=== PATIENT | male | born 2000 | race Caucasian/White ===

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

== ENCOUNTER 2024-12-13 05:51 | Emergency (ER) | payer OTHER ==
[~2024-12-13] VITALS: Ht 175.3 cm; Wt 90.0 kg
[2024-12-13 06:09] VITALS: O2SAT 100
[2024-12-13] MEDS: ONDANSETRON HCL 4MG/2ML INJ IV ONE ×2 (06:44→08:01)
[2024-12-13] MEDS: SODIUM CHLORIDE 0.9% 1,000 ML IV ONE (06:44)
[2024-12-13] MEDS: KETOROLAC 15MG/ML VIAL IV ONE (06:44)
[2024-12-13 06:45] LABS: BASOPHILS % 0.3 % (0.0-2.0); EOSINOPHILS % 2.2 % (0.0-5.0); HEMATOCRIT. 38.7 % (42.0-52.0); HEMOGLOBIN. 13.2 g/dL (14.0-18.0); LYMPHOCYTES % 60.7 % (20.0-50.0); MEAN PLATELET VOLUME 8.4 fl (7.4-10.4); MONOCYTES % 6.3 % (2.0-8.0); NEUTROPHILS % 30.5 % (40.0-76.0); PLATELET 248 x1000/uL (130-400); RED BLOOD CELL COUNT 4.32 mill/uL (4.7-6.1); RED CELL DISTRIBUTION WIDTH 13.5 % (11.6-14.6)
[2024-12-13 06:59] LABS: CREATININE 0.9 mg/dL (0.6-1.3)
[2024-12-13 07:00] LABS: UREA NITROGEN BLOOD 13 mg/dL (9-23)
[2024-12-13 07:01] LABS: ASPARTATE AMINOTRANSFERASE 17 IU/L (<34)
[2024-12-13 07:02] LABS: BILIRUBIN TOTAL 0.9 mg/dL (0.1-1.0); PROTEIN TOTAL 7.4 g/dL (6.0-8.3)
[2024-12-13] MEDS: MORPHINE SULFATE 4 MG/ML INJ (FOR IV/IM USE) IV ONE (08:01)
[2024-12-13] MEDS: TAMSULOSIN HCL 0.4MG SR CAPSULE PO ONE (08:15)
[2024-12-13] MEDS: HYDROCODONE/ACETAMINOPHEN 5/325MG TABLET PO ONE (10:06)
[2024-12-13 10:21] LABS: CLARITY URINE CLEAR (CLEAR); COLOR URINE YELLOW (YELLOW); GLUCOSE URINE NEGATIVE (NEGATIVE); KETONES URINE 1+ (NEGATIVE); LEUKOCYTE ESTERASE URINE TRACE (NEGATIVE); NITRITE URINE NEGATIVE (NEGATIVE); OCCULT BLOOD URINE 3+ (NEGATIVE); PH URINE 6.0 (4.5-8.0); PROTEIN URINE TRACE (NEGATIVE); SPECIFIC GRAVITY URINE 1.019 (1.005-1.030); UROBILINOGEN URINE 0.2 E.U./dL (0.2-1.0)
[2024-12-13 10:42] LABS: BACTERIA URINE 1+; RBC URINE TNTC /hpf (0-2); SQUAMOUS EPITHELIAL CELL URINE NONE SEEN /lpf (RARE/1+); YEAST URINE NONE SEEN
[2024-12-13] MEDS ORDERED: IBUP-2029 MT (10:50)
[2024-12-13] MEDS ORDERED: TAMS-54 MT (10:50)
[2024-12-13] MEDS ORDERED: T3 PO (10:50)
[2024-12-13 11:15] VITALS: BP 126/61; PULSE 58; RESP 12; TEMP 37.1; O2SAT 100
== END 2024-12-13 11:37 | disposition home or self-care (01) ==
LOC: ER 05:51
DX: N13.2 Hydronephrosis with renal and ureteral calculous obstruction (principal); F17.200 Nicotine dependence, unspecified, uncomplicated
CPT/HCPCS: 99285; 74176; 96374; 96375; 96361; 80053; 81003; 83690; 85025; 36415; 93005; 96376; J1885; J2405; J2270; J7030